=== PATIENT | male | born 1995 | race Caucasian/White ===

== ENCOUNTER 2021-11-20 00:56 | Emergency (ER) | payer OTHER ==
[~2021-11-20] VITALS: Ht 177.8 cm; Wt 84.1 kg
[2021-11-20 00:58] VITALS: BP 144/87
[2021-11-20 01:17] LABS: COVID AG,FIA SOURCE NASAL SWAB
[2021-11-20] MEDS ORDERED: BENZ1LOZ50 PO (01:49)
[2021-11-20] MEDS ORDERED: AMOX500C2 PO (01:49)
== END 2021-11-20 01:59 | disposition home or self-care (01) ==
LOC: EMS 00:58
DX: J02.0 Streptococcal pharyngitis (principal); Z20.822 Contact with and (suspected) exposure to COVID-19
CPT/HCPCS: 87430; 99283